=== PATIENT | male | born 1960 | race Caucasian/White ===

== ENCOUNTER → 2024-11-05 | Outpatient (CLI) | payer MEDICARE, BC ==
--- NOTE | 2024-11-05 11:15 | XR ---
EXAMINATION TYPE: XR chest 2V DATE OF EXAM: 11/05/2024 11:00 AM COMPARISON: Chest radiographs from 10/12/2024 CLINICAL INDICATION: Male, 64 years old with history of J90 pleural effusion; [facility] TECHNIQUE: XR chest 2V Frontal and lateral views of the chest. FINDINGS: Lungs/Pleura: Blunting of the left costophrenic angle. There is no evidence of right pleural effusio n, focal consolidation, or pneumothorax Pulmonary vascularity: Unremarkable. Heart/mediastinum: Cardiomediastinal silhouette is unremarkable. Left atrial appendage occlusion delicia ce is present. Musculoskeletal: Multiple level degenerative disc disease changes seen throughout the spine. Midline sternotomy wires are noted. Other findings: None IMPRESSION: Small left pleural effusion. [facility], , 11/05/2024 11:13 AM
== END | disposition home or self-care (01) ==
LOC: RADXRMAIN 10:43
PROVIDERS: ATTEND Surgery
DX: J90 Pleural effusion, not elsewhere classified (principal)
CPT/HCPCS: 71046

== ENCOUNTER 2024-11-11 09:37 | Day surgery (SDC) | payer BC, MEDICARE ==
[2024-11-09 15:44] VITALS: BMI 25.8
[2024-11-11 11:02] VITALS: TEMP 97.4
[2024-11-11 12:42] VITALS: BP 123/70; RESP 16
[2024-11-11 12:44] VITALS: PULSE 66
--- NOTE | 2024-11-11 12:45 | XR ---
EXAMINATION TYPE: XR chest 1V portable DATE OF EXAM: 11/11/2024 12:33 PM COMPARISON: None. CLINICAL INDICATION: Male, 64 years old with history of POST THORACENTESIS, TECHNIQUE: XR chest 1V portable views of the chest are obtained. FINDINGS: Demonstrated are scattered senescent parenchymal change. No evidence for pneumothorax on the left status post thoracentesis. Linear basilar atelectasis noted. The heart is stable. Hilar and mediastinal structures are within normal limits. Degenerative changes are seen of the dorsal spine. IMPRESSION: 1. No evidence for pneumothorax on the left status post thoracentesis. Linear basilar atelectasis no mary. [facility], , 11/11/2024 12:43 PM
--- NOTE | 2024-11-11 13:51 | PCN ---
PROCEDURE NOTE PROCEDURE: Left-sided thoracentesis. PREOPERATIVE DIAGNOSIS: Left pleural effusion. POSTOPERATIVE DIAGNOSIS: Left pleural effusion. RECRUITMENT SPECIALIST: Dr. Jefferson. There was informed consent and universal timeout. The patient's procedure took place in [facility]. I was assisted by the registered nurse. The left pleural space and pleural effusion was marked by ultrasound. Under sterile conditions, the left pleural space was drained of fluid. Roughly 1 L of fluid was removed from the left pleural space. The patient tolerated the procedure well. The fluid will be sent for analysis including cytology, chemistry, and microbiology. 1 L of dark bloody fluid was removed from the left pleural space. The patient tolerated the procedure well without difficulty. A time-out was completed verifying correct patient, procedure, site, positioning , and implant (s) or special equipment if applicable. Ultrasound guidance was used and appropriate fluid pocket was identified and marked. Patient was positioned, prepped and draped in usual sterile fashion. Lidocaine was used to anesthetize the area. A Thoracentesis catheter was introduced into the pleural space and fluid was removed. Blood loss was none. A chest x-ray was ordered to evaluate for pneumothorax. There was no immediate complication and the chest x-ray was ordered. The fluid was sent for analysis. There was informed consent and universal timeout. MMODL / IJN: [id number] /
[2024-11-12 03:05] LABS: Glucose, BF Source Pleural Fluid; Glucose, Body Fluid 94 mg/dL; LDH, Body Fluid Source Pleural Fluid; T. Protein, Body Fluid Source Pleural Fluid; Total Protein, Body Fluid >3600 mg/dL
[2024-11-12 04:19] LABS: Appearance,BF Clear (Clear)
== END 2024-11-11 13:07 | disposition home or self-care (01) ==
LOC: ORWHC2ENDO 09:37
PROVIDERS: ATTEND Internal Medicine Critical Care Medicine
DX: J90 Pleural effusion, not elsewhere classified (principal); I25.10 Atherosclerotic heart disease of native coronary artery without angina pectoris; E78.00 Pure hypercholesterolemia, unspecified; K21.9 Gastro-esophageal reflux disease without esophagitis; Z88.2 Allergy status to sulfonamides; Z79.82 Long term (current) use of aspirin; Z79.02 Long term (current) use of antithrombotics/antiplatelets; Z79.899 Other long term (current) drug therapy
CPT/HCPCS: 32555; 71045; 82945; 83615; 84157; 87070; 87102; 87116; 87205; 87206; 87496; 87498; 87502; 87529; 87634; 87635; 87798; 88108; 88305; 88341; 88342; 89050

== ENCOUNTER → 2024-11-11 | Outpatient (CLI) | payer MEDICARE, BC ==
--- NOTE | 2024-11-11 10:37 | US ---
EXAMINATION TYPE: US chest DATE OF EXAM: 11/11/2024 COMPARISON: NONE CLINICAL INDICATION: Male, 64 years old with history of J90; TECHNIQUE: Grayscale imaging of the chest. Targeted ultrasound of the posterior lower left hemithora x FINDINGS: EXAM MEASUREMENTS: Left Pleural Effusion pocket size: 11.8 cm Left skin surface to fluid distance: 3.2 cm Lung tissue seen within anterior portion of pocket Left side marked for possible thoracentesis outside the dept. Pulmonologists are able to review the images in the patient?s EMR. IMPRESSIONS: As above [facility], , 11/11/2024 10:34 AM
== END | disposition home or self-care (01) ==
LOC: RADUSWWP 09:35
PROVIDERS: ATTEND Internal Medicine Critical Care Medicine
DX: J90 Pleural effusion, not elsewhere classified (principal)
CPT/HCPCS: 76604